=== PATIENT | male | born 2000 | race Two or more races ===

== ENCOUNTER 2022-06-01 11:45 | Emergency (ER) | payer MEDICAID ==
[~2022-06-01] VITALS: Ht 180.3 cm; Wt 108.9 kg
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
[2022-06-01] MEDS ORDERED: CLIN300C12 PO (12:38)
[2022-06-01] MEDS ORDERED: HYDR-3980 PO (12:38)
--- NOTE | 2022-06-01 12:43 | NUR ---
Patient discharged to home in stable condition. Written and verbal after care instructions given. Patient verbalizes understanding of instruction.
[2022-06-01 12:52] VITALS: BP 120/67
== END 2022-06-01 12:53 | disposition home or self-care (01) ==
LOC: ER 11:53
DX: L03.311 Cellulitis of abdominal wall (principal); Z79.899 Other long term (current) drug therapy

== ENCOUNTER 2022-09-04 08:25 | Emergency (ER) | payer MEDICAID ==
[~2022-09-04] VITALS: Ht 182.9 cm; Wt 118.8 kg
[~2022-09-04 08:25] MED LIST: CLIN300C12 PO; HYDR-3980 PO
[2022-09-04] MEDS ORDERED: TDAP [DIPH/PERTUSSIS/TET] 0.5 ML VIAL IM ONE ×2 (08:46→09:00)
[2022-09-04] MEDS ORDERED: MORPHINE SULFATE INJ 4 MG/ML DISP.SYRIN ONE ×2 (08:46→12:07)
--- NOTE | 2022-09-04 08:50 | NUR ---
AT BEDSIDE FOR EVAL. TECH AT BEDSIDE FOR WOUND CARE.
--- NOTE | 2022-09-04 08:55 | NUR ---
RAC #20, BLOOD DRAWN AND COLLECTED BY PHLEB AT BEDSIDE
--- NOTE | 2022-09-04 08:55 | NUR ---
MUSTANGER AT BEDSIDE.
[2022-09-04] MEDS ORDERED: CEFAZOLIN 1 GM in IV D5W 50 ML IV ONE (09:00)
[2022-09-04] MEDS ORDERED: MORPHINE SULFATE INJ 2 MG/ML DISP.SYRIN IV ONE ×2 (09:00→12:00)
--- NOTE | 2022-09-04 09:01 | NUR ---
TDAP GIVEN IM LEFT DELTOID, MILAGRO WELL.
[2022-09-04 09:05] LABS: BASOPHILS % (AUTO) 0.6 % (0.0-2.0); HEMATOCRIT 45 % (39-51); HEMOGLOBIN 15.2 g/dL (13.5-17.5); LYMPHOCYTES # (AUTO) 2.7 K/uL (0.8-4.8); LYMPHOCYTES % (AUTO) 41.5 % (20.0-44.0); MEAN CORPUSCULAR HGB CONC 34 g/dl (31.0-36.0); MEAN CORPUSCULAR VOLUME 91 fL (80-96); MONOCYTES # (AUTO) 0.4 K/uL (0.1-1.30); MONOCYTES % (AUTO) 6.6 % (2.0-12.0); NEUTROPHILS # (AUTO) 3.2 K/uL (1.8-8.9); NEUTROPHILS % (AUTO) 49.3 % (43.0-81.0); PLATELET COUNT (AUTO) 296 K/uL (150-450); RED BLOOD CELL COUNT(AUTO) 4.96 MIL/uL (4.5-6.0); WHITE BLOOD COUNT (AUTO) 6.4 K/uL (4.3-11.0)
[2022-09-04 09:38] LABS: CALCIUM, SERUM 8.8 mg/dL (8.5-10.1); CREATININE 1.2 mg/dL (0.6-1.3); POTASSIUM 3.9 mmol/L (3.5-5.1)
[2022-09-04] MEDS ORDERED: LIDOCAINE 2% 20 ML MDV ONE (10:46)
[2022-09-04] MEDS ORDERED: LIDOCAINE 1%-EPI 1:100,000 20 ML VIAL TP ONE (11:00)
[2022-09-04] MEDS ORDERED: AMOX-430 PO (12:44)
--- NOTE | 2022-09-04 12:45 | NUR ---
DR ALCARAZ AT BEDSIDE FOR SUTURE/LAC REPAIR.
--- NOTE | 2022-09-04 13:15 | NUR ---
IV removed. Catheter intact and site benign. Pressure and 4x4 applied to site. No bleeding noted.
[2022-09-04 13:17] VITALS: BP 138/80
--- NOTE | 2022-09-04 13:18 | NUR ---
Patient discharged to home in stable condition. Written and verbal after care instructions given. Patient verbalizes understanding of instruction.
== END 2022-09-04 13:19 | disposition home or self-care (01) ==
LOC: ER 08:27
DX: S31.31XA Laceration without foreign body of scrotum and testes, initial encounter (principal); Z79.899 Other long term (current) drug therapy; W54.0XXA Bitten by dog, initial encounter; Y93.89 Activity, other specified; Y92.89 Other specified places as the place of occurrence of the external cause; Y99.8 Other external cause status
CPT/HCPCS: 99284; 12042; 96365; 96375; 90471; 90715; 76870; 85025; 80048; 36415; 85730; 96376; J0690; J2270 ×2; J7060; A6403 ×2; J3490

== ENCOUNTER 2025-08-06 09:24 | Emergency (ER) | payer MEDICAID ==
[~2025-08-06] VITALS: Ht 180.3 cm; Wt 104.3 kg
[~2025-08-06 09:24] MED LIST changes: +AMOX-430 PO
[2025-08-06] MEDS ORDERED: BACLOFEN (10 MG) 10 MG TABLET ONE (10:05)
[2025-08-06] MEDS ORDERED: KETOROLAC TROMETHAMINE INJ 30 MG/ML VIAL ONE (10:05)
[2025-08-06] MEDS: KETOROLAC TROMETHAMINE INJ 30 MG/ML VIAL IM ONE (10:14)
[2025-08-06] MEDS: BACLOFEN (10 MG) 10 MG TABLET PO ONE (10:15)
[2025-08-06] MEDS ORDERED: SULI200T4 PO (11:29)
[2025-08-06] MEDS ORDERED: BACL10TA PO (11:29)
[2025-08-06 11:33] VITALS: BP 126/72; TEMP 98.1; O2SAT 100
== END 2025-08-06 11:34 | disposition home or self-care (01) ==
LOC: ER 09:31
DX: S06.0X0A Concussion without loss of consciousness, initial encounter (principal); S13.4XXA Sprain of ligaments of cervical spine, initial encounter; I51.9 Heart disease, unspecified; Z79.899 Other long term (current) drug therapy; V89.0XXA Person injured in unspecified motor-vehicle accident, nontraffic, initial encounter; Y93.89 Activity, other specified; Y92.89 Other specified places as the place of occurrence of the external cause; Y99.9 Unspecified external cause status
CPT/HCPCS: 99285; 72125; 96372; 70450; 72131; J1885

== ENCOUNTER 2025-09-10 20:08 | Emergency (ER) | payer MEDICAID ==
[~2025-09-10 20:08] MED LIST changes: +BACL10TA PO; +SULI200T4 PO
== END 2025-09-10 20:28 | disposition left against medical advice (07) ==
LOC: ER 20:11
DX: M54.9 Dorsalgia, unspecified (principal); Z53.21 Procedure and treatment not carried out due to patient leaving prior to being seen by health care provider